=== PATIENT | male | born 1980 | race Caucasian/White ===

== ENCOUNTER → 2017-09-07 | Outpatient (REF) | payer MEDICARE, MEDICAID ==
[2017-09-07 14:23] LABS: ALBUMIN 3.6 GM/DL (3.2-5.2); ALKALINE PHOSPHATASE 86 U/L (45-117); ALT/SGPT 26 U/L (12-78); ANION GAP 3 MEQ/L (8-16); AST/SGOT 16 U/L (7-37); BILIRUBIN,TOTAL 0.3 MG/DL (0.2-1.0); BLOOD UREA NITROGEN 15 MG/DL (7-18); CALCIUM LEVEL 8.6 MG/DL (8.5-10.1); CARBON DIOXIDE LEVEL 32 MEQ/L (21-32); CHLORIDE LEVEL 108 MEQ/L (98-107); CHOLESTEROL LEVEL 128 MG/DL (<200); CREATININE FOR GFR 1.05 MG/DL (0.70-1.30); GLOMERULAR FILTRATION RATE > 60.0 (>60); GLUCOSE, FASTING 100 MG/DL (70-105); POTASSIUM SERUM 4.4 MEQ/L (3.5-5.1); SODIUM LEVEL 143 MEQ/L (136-145); TOTAL PROTEIN 6.6 GM/DL (6.4-8.2); TRIGLYCERIDES LEVEL 59 MG/DL (<150)
== END ==
LOC: M LAB REF 12:47
PROVIDERS: ATTEND Family Medicine Addiction Medicine
DX: M79.604 Pain in right leg (principal); R60.0 Localized edema; Z79.899 Other long term (current) drug therapy

== ENCOUNTER 2017-12-08 17:08 | Emergency (ER) | payer MEDICARE, MEDICAID ==
[2017-12-08] MEDS: NORCO, ANEXSIA 5/325MG TABLET (HYDROcodone/ACETAMINOPHEN) PO (18:31)
== END 2017-12-08 18:46 | disposition home or self-care (01) ==
LOC: M ED 17:08
DX: S90.811A Abrasion, right foot, initial encounter (principal); S90.31XA Contusion of right foot, initial encounter; W20.8XXA Other cause of strike by thrown, projected or falling object, initial encounter; Y92.018 Other place in single-family (private) house as the place of occurrence of the external cause; Z79.899 Other long term (current) drug therapy; Z91.013 Allergy to seafood; F17.210 Nicotine dependence, cigarettes, uncomplicated
CPT/HCPCS: 73630

== ENCOUNTER 2019-04-19 09:30 | Outpatient (RCR) | payer MEDICARE, MEDICAID ==
[~2019-04-19 09:30] MED LIST: GABA-843; IBUP80TA PO
== END 2019-04-22 ==
LOC: M PT 09:30
PROVIDERS: ATTEND Family Medicine Addiction Medicine
DX: M25.512 Pain in left shoulder (principal); M54.2 Cervicalgia; M54.5 Low back pain

== ENCOUNTER 2019-05-22 11:21 | Outpatient (RCR) | payer MEDICARE, MEDICAID | END 2019-05-23 | LOC: M PT 11:21 | PROVIDERS: ATTEND Family Medicine Addiction Medicine | DX: Z51.89 Encounter for other specified aftercare (principal); M25.512 Pain in left shoulder; M54.2 Cervicalgia; M54.5 Low back pain ==

== ENCOUNTER 2019-06-21 09:30 | Outpatient (RCR) | payer MEDICARE, MEDICAID | END 2019-06-23 | LOC: M PT 09:30 | PROVIDERS: ATTEND Family Medicine Addiction Medicine | DX: Z51.89 Encounter for other specified aftercare (principal); M25.512 Pain in left shoulder; M54.5 Low back pain; M54.2 Cervicalgia ==

== ENCOUNTER 2019-07-18 09:30 | Outpatient (RCR) | payer MEDICARE, MEDICAID | END 2019-07-23 | LOC: M PT 09:30 | PROVIDERS: ATTEND Family Medicine Addiction Medicine | DX: Z51.89 Encounter for other specified aftercare (principal); M25.512 Pain in left shoulder; M54.2 Cervicalgia; M54.5 Low back pain ==

== ENCOUNTER 2019-08-02 09:30 | Outpatient (RCR) | payer MEDICARE, MEDICAID | END 2019-08-23 | LOC: M PT 09:30 | PROVIDERS: ATTEND Family Medicine Addiction Medicine | DX: M25.512 Pain in left shoulder (principal); M54.2 Cervicalgia ==

== ENCOUNTER 2022-10-14 10:45 | Outpatient (RCR) | payer MEDICARE, MEDICAID ==
[~2022-10-14 10:45] MED LIST changes: +GABA-282; -GABA-843
== END 2022-10-23 ==
LOC: M PT 10:45
PROVIDERS: ATTEND Nurse Practitioner Family
DX: M54.50 Low back pain, unspecified (principal)

== ENCOUNTER 2022-11-02 10:49 | Outpatient (RCR) | payer MEDICARE, MEDICAID | END 2022-11-23 | LOC: M PT 10:49 | PROVIDERS: ATTEND Nurse Practitioner Family | DX: M54.50 Low back pain, unspecified (principal) ==

== ENCOUNTER → 2024-06-14 | Outpatient (CLI) | payer MEDICARE ==
[2024-06-14 13:13] LABS: BASO # 0.2 10^3/uL (0.0-0.2); BASO % 1.1 % (0.0-1.0); EOS # 0.4 10^3/uL (0.0-0.5); EOS % 3.1 % (0.0-3.0); HEMATOCRIT 47.9 % (42.0-52.0); HEMOGLOBIN 15.8 g/dl (13.5-17.5); LYMPH # 3.4 10^3/uL (1.5-5.0); LYMPH % 25.4 % (24.0-44.0); MEAN CORPUSCULAR VOLUME 94.1 fl (80.0-96.0); MONO # 1.1 10^3/uL (0.0-0.8); MONO % 8.1 % (2.0-8.0); NEUTROPHILS # 8.2 10^3/uL (1.5-8.5); PLATELET COUNT, AUTOMATED 395 10^3/uL (150-450); RED BLOOD COUNT 5.09 10^6/uL (4.30-6.10); WHITE BLOOD COUNT 13.3 10^3/uL (4.0-10.0)
[2024-06-14 13:51] LABS: CPK CREATINE PHOSPHOKINASE 173 U/L (46-171)
[2024-06-14 13:52] LABS: ALBUMIN 3.5 G/DL (3.2-5.2); ALKALINE PHOSPHATASE 136 U/L (46-116); ALT/SGPT 39 U/L (7.0-40); AST/SGOT 22 U/L (<34); BILIRUBIN,TOTAL 0.2 MG/DL (0.3-1.2); BLOOD UREA NITROGEN 16 MG/DL (9-23); CALCIUM LEVEL 9.3 MG/DL (8.5-10.1); CARBON DIOXIDE LEVEL 28 MMOL/L (20-31); CHLORIDE LEVEL 108 MMOL/L (98-107); CHOLESTEROL LEVEL 173 MG/DL (<200); CHOLESTEROL RISK RATIO 4.87 (<5); CK-MB VALUE MASS 1.8 NG/ML (<3.6); CREATININE FOR GFR 1.01 MG/DL (0.70-1.30); GLOMERULAR FILTRATION RATE > 60.0 (>60); GLUCOSE, FASTING 94 MG/DL (60-100); HDL CHOLESTEROL 35.5 MG/DL (>40); LDL CHOLESTEROL 98.9 MG/DL (<100); MB/CK RELATIVE INDEX 1.04 (< OR =4); NON-HDL-C 137.5 MG/DL; POTASSIUM SERUM 4.3 MMOL/L (3.5-5.1); SODIUM LEVEL 140 MMOL/L (136-145); TOTAL PROTEIN 6.6 G/DL (5.7-8.2); TRIGLYCERIDES LEVEL 193 MG/DL (<150)
[2024-06-14 13:53] LABS: THYROID STIMULATING HORMONE 4.039 uIU/ML (0.55-4.78)
[2024-06-14 13:54] LABS: FREE T4 1.03 NG/DL (0.89-1.76)
== END ==
LOC: M PLALAB 09:01
PROVIDERS: ATTEND Nurse Practitioner Family
DX: E55.9 Vitamin D deficiency, unspecified (principal); R53.83 Other fatigue; Z13.220 Encounter for screening for lipoid disorders; Z86.69 Personal history of other diseases of the nervous system and sense organs; Z13.6 Encounter for screening for cardiovascular disorders